=== PATIENT | male | born 1955 | race Caucasian/White ===

== ENCOUNTER 2016-05-18 16:50 | Emergency (ER) | payer OTHER ==
[~2016-05-18] VITALS: Ht 188 cm; Wt 100.0 kg
[~2016-05-18 16:50] MED LIST: CALC-984 PO; DOFE0.25 PO; ENAL5TAB PO; LAN125 PO; METO-272 PO; RIVA10TA PO; SPIR25TA PO; TORS20TA PO
[2016-05-18 17:10] VITALS: BP 97/72; PULSE 72; RESP 20; O2SAT 100
--- NOTE | 2016-05-18 18:06 | ED.REPORT ---
HPI-Dyspnea / Wheezing Date of Service May 18, 2016 ED Provider: Imtiaz Robles MD The patient is a 60 year old male w/ a hx of pacemaker secondary to cardiomyopathy, HTN, CHF, atrial fibrillation, who presents to the ED due to SOB for the past 4 or 5 days. Associated symptoms include headache, wheezing, weight fluctuation, fever (high of 99.6F), dry heaves, productive cough, dysuria , malaise, and nasal congestion. His stable weight is 216 lbs and he has been fluctuating by about 2 lbs. He denies chest pain, hematochezia, black/tarry stools and says that he feels like he is getting better. He lives with his grandchildren and they have all had colds lately. He had a flu shot this year. Dr. Gipson is is his PCP. Dr. King ([phone]) is his machine plate stacker who wanted him evaluated for possible transfer to . He is on the heart transplant list. Nursing Notes Stated Complaint: COUGH, HEADACHE, BODY ACHE/SENT FROM DR BAXTER Chief Complaint: General Complaint Nursing Notes Reviewed: Yes Allergies: Coded Allergies: digoxin (Verified Allergy, Unknown, nausea, 05/18/16) Scheduled Digoxin (Lanoxin) 0.125 Mg Tablet 0.125 MG PO DAILY@12 Dofetilide (Tikosyn) 250 Mcg Capsule 250 MCG PO BID Enalapril Maleate (Enalapril Maleate) 5 Mg Tablet 2.5 MG PO BID Metoprolol Succinate ER (Metoprolol Succinate ER) 50 Mg Tab.er.24h 200 MG PO DAILY@2029 Oseltamivir Phosphate (Tamiflu) 75 Mg Capsule 75 MG PO BID Rivaroxaban (Xarelto) 10 Mg Tablet 20 MG PO DAILY@17 Spironolactone (Aldactone) 25 Mg Tablet 25 MG PO DAILY Torsemide (Demadex) 20 Mg Tablet 40 MG PO DAILY Scheduled PRN Calcium Carb/Magnesium Hydrox (Rolaids Chewable Tablet) 550 Mg-110 Mg Tab.chew 1 EACH PO HS PRN PRN For Dyspepsia or Heartburn General Time Seen by MD: 18:04 Chief Complaint Shortness of breath Hx Obtained From: Patient Arrived By: Walk-in Sudden in Onset?: Yes Onset Occurred: 5 days ago Symptom Duration: Since onset Severity: Current: No pain currently Past Medical History Past Medical History 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 GI: Denies: Bloody/tarry stool, Hematochezia Female: Reports: Dysuria Neurologic: Reports: Headache Physical Exam Initial Vital Signs Vital Signs (First) Date Time Temp Pulse Resp B/P Pulse Ox O2 Delivery O2 Flow Rate FiO2 05/18/16 17:10 37.4 72 20 97/72 100 Room Air Initial VS: Reviewed Head / Eyes: Atraumatic, Normocephalic, PERRL ENT: Mucous membranes moist, Conjunctiva normal, No scleral icterus Back: No CVA tenderness Lymphatic: No lymphadenopathy Skin: Warm, Dry, No cyanosis Neurologic: Alert, Oriented, Nonfocal Psychiatric: Mood/affect normal, Behavior normal, Normal thought content General/Constitutional: Awake, Alert, Cooperative Neck: Supple, Full range of motion, No midline vertebral tend Neck Vascular: Positive: JVD mild Respiratory / Chest: Atraumatic, Breath sounds NL, Breath sounds = bilat, No respiratory distress, No rales, No rhonchi Cardiovascular: Heart rate NL, No gallop, No rubs Heart Rate / Rhythm: Positive: Irreg irregular rhythm (soft systolic murmur) left ventricular assist device, pacemaker defibrillator Abdomen: Atraumatic, Soft, Non-tender, No guarding, No rebound, BS normoactive Lower Extremity / Pelvis / MS: Atraumatic, Inspection NL, Full range of motion , No swelling, Non-tender, No edema Interpretation & Diagnostics Lab Results Interpretation Result Diagram: 05/18/16 [id number] Test 05/18/16 19:20 05/18/16 19:22 Hold [place] Top Tube Received (Received) White Blood Count 6.2th/mm3 (3.8-10.1) Red Blood Count 3.86mil/mm3 (4.40-5.80) Hemoglobin 13.1g/dL (13.8-17.2) Hematocrit 38.5% (41.0-50.0) Mean Corpuscular Volume 99.7fL (81-100) Mean Corpuscular Hemoglobin 33.9pg (27.0-35.0) Mean Corpuscular Hemoglobin Concent 34.0% (32.0-37.0) Red Cell Distribution Width 14.1% (12.3-15.4) Platelet Count 149bil/L (150-400) Neutrophils (%) (Auto) 63.8% (40-74) Lymphocytes (%) (Auto) 23.3% (14-46) Monocytes (%) (Auto) 11.9% (4-12) Eosinophils (%) (Auto) 0.2% (0-5) Basophils (%) (Auto) 0.3% (0-3) Sodium Level 131mEq/L (134-144) Potassium Level 3.5mEq/L (3.5-5.2) Chloride Level 89mEq/L (97-108) Carbon Dioxide Level 20mmol/L (18-29) Blood Urea Nitrogen 22mg/dL (6-24) Creatinine 1.26mg/dL (0.76-1.27) Estimat Glomerular Filtration Rate 62mL/min (>59) Glucose Level 100mg/dL (60-99) Calcium Level 8.8mg/dL (8.5-10.1) Total Bilirubin 2.1mg/dL (0.0-1.2) Aspartate Amino Transf (AST/SGOT) 37U/L (0-50) Alanine Aminotransferase (ALT/SGPT) 21U/L (0-44) Alkaline Phosphatase 24U/L (25-150) Troponin T < 0.010ug/L (0.0-0.011) Pro-B-Type Natriuretic Peptide 7822pg/mL (0-210) Total Protein 7.0g/dL (6.4-8.4) Albumin 4.2g/dL (3.4-5.0) Procalcitonin 0.17ng/mL (0.00-0.08) Lab Results Interpretation: positive for influenza B ECG Interpretation Time: 18:53 Interpreted by: ED physician Rhythm / Conduction: Atrial paced rhythm (rate 69) X-Ray Chest Interpretation Chest Xray Interpretation: IMPRESSION: Moderate cardiomegaly as before, without acute cardiopulmonary disease. Dictated by: Monroe Armstrong M.D. on 05/18/2016 at 18:43 Approved by: Monroe Armstrong M.D. on 05/18/2016 at 18:44 View: Portable Interpretation / Wet Read by: Interpret - Radiologist Re-Eval/Medical Decision Med Decision/Clinical Course 60-year-old male with a severe nonischemic cardiomyopathy. He presented with similar respiratory symptoms, he looks well and vital signs are notable for blood pressures in the mid to upper 80s and 90s, these are baseline. On labs he is noted to have a drop in his hematocrit. Did not endorse hematochezia or melena, is not having orthostatic symptoms. He is positive for influenza B. He has been ill for several days given his underlying medical condition we will start Tamiflu tonight. [facility] team is aware and will be following him closely. Re-Evaluation/Progress : Time of Eval: 21:28 Re-Evaluation/Progress Note: Pt rechecked. Informed pt of diagnosis of influenza B and consult w/ Dr. King. F/U and RTER warnings given. Pt understands and agrees with plan. Consultation : Call Returned at: 21:12 Robotics Specialist: Agrees with eval, Agrees with plan Note: Dr. King consulted. Case discussed in detail and would like to cancel follow up appointment with tomorrow. Double out patient potassium dose. ([phone]) Counseled Regarding: Diagnosis, Lab results, Need for follow-up, When/why to return to ED Discharge & Departure Impression: Primary Impression: Influenza B Disposition: Home Discharge Condition All VS Reviewed: Yes Condition: Stable Additional Instructions: Emergency department evaluation today included review, examination, labs, chest x-ray and ECG. Case was discussed in detail with your doctor. You have Influenza B. I'm sending you home with a prescription for Tamiflu. Drink plenty of fluids and keep well hydrated. Increqse potiasium to 20meq twice daily. You should cancel appointment tomorrow to avoid exposing other paintents. Dr King would like to set up repeat labs for tomorrow. Return to the Emergency Department for fevers, shaking chills, increasing trouble breathing, vomiting blood or dark stool. . Follow up with Dr King soon- they will advise on plan for follow up. We hope you feel better soon! Referrals: Sachin Mckenna MD (PCP) Venkata Attestation Portion of this note were transcribed by Carol Swartz. I, Dr. Robles, personally performed the history, physical exam, and medical decision-making: I reviewed and confirmed the accuracy for the information in the transcribed note. Signed by: venkata Jackson, 05/18/16 2200 copies to: Sachin Mckenna MD, Donald L MD May 18, 2016 18:06 Carol Swartz May 18, 2016 18:30
--- NOTE | 2016-05-18 18:46 | DRSVH ---
PROCEDURE: X-RAY CHEST, TWO VIEWS ([id number]) INDICATIONS: 60-year-old male with cardiomyopathy and cough. TECHNIQUE: 2 views of the chest were acquired. COMPARISON: [facility], CR, XR CHEST 1VW (PORTABLE), 03/08/2016, 23:09. [facility], [place], CHEST 2VW, 08/08/2015, 5:49 PM. [facility], CR, CHEST 2VW, 05/11/2014, 7:51. FINDINGS: Surgical changes and devices: Biventricular pacer/ICD is again noted. Lungs and pleura: No pleural effusions or pneumothorax. Lungs are clear. Mediastinum: Mediastinal contours are normal. Moderate cardiomegaly is unchanged. Bones and chest wall: No suspicious bony abnormalities. Soft tissues appear unremarkable. IMPRESSION: Moderate cardiomegaly as before, without acute cardiopulmonary disease. Dictated by: Monroe Armstrong M.D. on 05/18/2016 at 18:43 Approved by: Monroe Armstrong M.D. on 05/18/2016 at 18:44
[2016-05-18 18:52] VITALS: BP 94/53; PULSE 75; RESP 16; O2SAT 96
[2016-05-18 19:29] LABS: BASOPHILS % (AUTO) 0.3 % (0-3); EOSINOPHILS % (AUTO) 0.2 % (0-5); MONOCYTES % (AUTO) 11.9 % (4-12); Mean Corpuscular Hemoglobin 33.9 pg (27.0-35.0); Mean Corpuscular Volume 99.7 fL (81-100); NEUTROPHILS % (AUTO) 63.8 % (40-74); Platelet Count 149 bil/L (150-400)
[2016-05-18 19:58] LABS: TROPONIN T < 0.010 ug/L (0.0-0.011)
[2016-05-18 20:13] VITALS: BP 90/50; PULSE 81; RESP 16; O2SAT 96
[2016-05-18] MEDS ORDERED: TAM75UDCAP PO (21:25)
[2016-05-18 21:48] VITALS: BP 87/50; PULSE 76; RESP 22; O2SAT 96
== END 2016-05-18 21:49 | disposition home or self-care (01) ==
LOC: SED 16:50
DX: J10.1 Influenza due to other identified influenza virus with other respiratory manifestations (principal); I42.9 Cardiomyopathy, unspecified; I50.9 Heart failure, unspecified; G62.0 Drug-induced polyneuropathy; T44.7X5A Adverse effect of beta-adrenoreceptor antagonists, initial encounter; I10 Essential (primary) hypertension; I48.91 Unspecified atrial fibrillation; Z95.0 Presence of cardiac pacemaker; Z88.8 Allergy status to other drugs, medicaments and biological substances